=== PATIENT | female | born 1960 | race Caucasian/White ===

== ENCOUNTER 2017-05-26 16:53 | Emergency (ER) | payer BC, OTHER ==
[2017-05-26] MEDS ORDERED: Diphtheria,Pertussis(Acell),Tetanus Vaccine 0.5 ML Syringe IM ONE (17:08)
[2017-05-26] MEDS ORDERED: Diphtheria,Pertussis(Acell),Tetanus Vaccine 0.5 ML Syringe ONE (17:21)
--- NOTE | 2017-05-26 17:41 | EDM.PDOC ---
ED HPI GENERAL MEDICAL PROBLEM - General Chief Complaint: Bite:Animal, Insect Stated Complaint: DOG BITE LT HAND Time Seen by Provider: 05/26/17 17:04 - History of Present Illness INITIAL COMMENTS - FREE TEXT/NARRATIVE: HISTORY AND PHYSICAL: History of present illness: Patient 57-year-old female presents with a concern of dog bite to her left wrist this occurred from a neighbor's dog bit got into an altercation with her dog she sustained a wound to the dorsal aspect of her left wrist she denies up- to-date tetanus the dog is in custody. Review of systems: As per history of present illness and below otherwise all systems reviewed and negative. Past medical history: As per history of present illness and as reviewed below otherwise noncontributory. Surgical history: As per history of present illness and as reviewed below otherwise noncontributory. Social history: No reported history of drug or alcohol abuse. Family history: As per history of present illness and as reviewed below otherwise noncontributory. Physical exam: HEENT: Atraumatic, normocephalic, pupils reactive, negative for conjunctival pallor or scleral icterus, mucous membranes moist, throat clear, neck supple, nontender, trachea midline. Lungs: Clear to auscultation, breath sounds equal bilaterally, chest nontender. Heart: S1S2, regular, negative for clicks, rubs, or JVD. Abdomen: Soft, nondistended, nontender. Negative for masses or hepatosplenomegaly. Negative for costovertebral tenderness. Pelvis: Stable nontender. Genitourinary: Deferred. Rectal: Deferred. Extremities: Patient has approximately a 1 cm immoderate depth laceration over the dorsal aspect of her left wrist is no tendon involvement was good hemostasis EMS neurovascular unremarkable Neuro: Awake, alert, oriented. Cranial nerves II through XII unremarkable. Cerebellum unremarkable. Motor and sensory unremarkable throughout. Exam nonfocal. Diagnostics: None Therapeutics: Patient's left wrist wound was irrigated with copious amounts 0.9 normal saline and closed with Steri-Strips and an occlusive dressing tetanus 0.5 Td was updated Impression: #1 dog bite left wrist Definitive disposition and diagnosis as appropriate pending reevaluation and review of above. left wrist bite Pain Score (Numeric/FACES): 4 - Related Data Allergies Allergy/AdvReac Type Severity Reaction Status Date / Time No Known Allergies Allergy Verified 05/26/17 17:12 Home Meds: Home Meds Escitalopram [Lexapro] PO DAILY 05/26/17 [History] ED ROS GENERAL - Review of Systems Review Of Systems: ROS reveals no pertinent complaints other than HPI. ED EXAM, ANIMAL BITE - Physical Exam Exam: See Below (See dictation) Course - Vital Signs Last Recorded V/S: Last Vital Signs Temp 36.7 C 05/26/17 17:09 Pulse 104 H 05/26/17 17:09 Resp 16 05/26/17 17:09 BP 137/101 H 05/26/17 17:09 Pulse Ox 96 05/26/17 17:09 - Orders/Labs/Meds Orders: Active Orders 24 hr Category Date Time Status Vaccines to be Administered [RC] PER UNIT ROUTINE Care 05/26/17 17:08 Active Diphth,Pertuss(Acell),Tet Vac [Adacel] Med 05/26/17 17:08 Once 0.5 ml IM .ONCE ONE Departure - Departure Time of Disposition: 17:16 Disposition: Home, Self-Care 01 Condition: Good Clinical Impression: Dog bite - Discharge Information Referrals: PCP,None [Primary Care Provider] - Additional Instructions: The following information is given to patients seen in the emergency department who are being discharged to home. This information is to outline your options for follow-up care. We provide all patients seen in our emergency department with a follow-up referral. The need for follow-up, as well as the timing and circumstances, are variable depending upon the specifics of your emergency department visit. If you don't have a primary care physician on staff, we will provide you with a referral. We always advise you to contact your personal physician following an emergency department visit to inform them of the circumstance of the visit and for follow-up with them and/or the need for any referrals to a consulting specialist. The emergency department will also refer you to a specialist when appropriate. This referral assures that you have the opportunity for followup care with a specialist. All of these measure are taken in an effort to provide you with optimal care, which includes your followup. Under all circumstances we always encourage you to contact your private physician who remains a resource for coordinating your care. When calling for followup care, please make the office aware that this follow-up is from your recent emergency room visit. If for any reason you are refused follow-up, please contact the [facility] emergency department at and asked to speak to the emergency department charge nurse. [facility] specialty clinic-Plastics [address] [place] [address] [phone] Follow-up primary medical doctor and/or hand surgery above 1-2 days call to schedule appointment Augmentin as prescribed return as needed as discussed - My Orders Last 24 Hours: My Active Orders 05/26/17 17:08 Vaccines to be Administered [RC] PER UNIT ROUTINE Diphth,Pertuss(Acell),Tet Vac [Adacel] 0.5 ml IM .ONCE ONE - Assessment/Plan Last 24 Hours: My Active Orders 05/26/17 17:08 Vaccines to be Administered [RC] PER UNIT ROUTINE Diphth,Pertuss(Acell),Tet Vac [Adacel] 0.5 ml IM .ONCE ONE
== END 2017-05-26 17:49 | disposition home or self-care (01) ==
LOC: MW.ED 16:53
DX: S61.552A Open bite of left wrist, initial encounter (principal); Z23 Encounter for immunization; Z79.899 Other long term (current) drug therapy; W54.0XXA Bitten by dog, initial encounter
CPT/HCPCS: 90471; 99283; 99283-25

== ENCOUNTER 2019-10-15 13:31 | Emergency (ER) | payer OTHER ==
[2019-10-15] MEDS ORDERED: Sodium Chloride 0.9% 2.5 ML Syringe FLUSH PRN (14:00)
[2019-10-15] MEDS ORDERED: Sodium Chloride 0.9% 10 ML Syringe FLUSH PRN (14:00)
--- NOTE | 2019-10-15 14:05 | EDM.PDOC ---
ED HPI GENERAL MEDICAL PROBLEM - General Chief Complaint: Genitourinary Problem Stated Complaint: UTI Time Seen by Provider: 10/15/19 14:04 Source of Information: Reports: Patient History Limitations: Reports: No Limitations - History of Present Illness INITIAL COMMENTS - FREE TEXT/NARRATIVE: HISTORY AND PHYSICAL: History of present illness: Patient is a 59-year-old female presents to the ED with complaint of UTI and difficulty urinating. Patient states she has been having dysuria x 1 week. She saw [employer] ATTENDANT in clinic 3 days ago and started on macrobid. She states she woke up this morning with more lower abdominal discomfort and has only urinated once this morning. She states she feels like she needs to go and lower abdomen feels full. She denies any fevers, chills, nausea, vomiting, back pain, diarrhea, constipation. Review of systems: As per history of present illness and below otherwise all systems reviewed and negative. Past medical history: As per history of present illness and as reviewed below otherwise noncontributory. Surgical history: As per history of present illness and as reviewed below otherwise noncontributory. Social history: No reported history of drug or alcohol abuse. Family history: As per history of present illness and as reviewed below otherwise noncontributory. Physical exam: General: Patient sitting comfortably in no acute distress and nontoxic appearing HEENT: Atraumatic, normocephalic, pupils reactive, negative for conjunctival pallor or scleral icterus, mucous membranes moist, throat clear, neck supple, nontender, trachea midline. No meningeal signs. Lungs: Clear to auscultation, breath sounds equal bilaterally, chest nontender. Heart: S1S2, regular, negative for clicks, rubs, or overt murmur. Abdomen: Soft, nondistended, suprapubic tenderness to palpation. Negative for masses or hepatosplenomegaly. Negative for costovertebral tenderness. No rigidity, rebound, guarding. Pelvis: Stable nontender. Genitourinary: Deferred. Rectal: Deferred. Extremities: Atraumatic, negative for cords or calf pain. Neurovascular unremarkable. Neuro: Awake, alert, oriented. Cranial nerves II through XII unremarkable. Cerebellum unremarkable. Motor and sensory unremarkable throughout. Exam nonfocal. Notes: Bladder scan shows 950cc. Coles catheter placed. Patient is afebrile and no tachycardia. CT scan shows diverticulitis. Diagnostics: UA, CBC, CMP, bladder scan Therapeutics: Coles catheter 1g Rocephin IV Prescriptions: Cipro Flagyl Impression: Urinary retention, diverticulitis Definitive disposition and diagnosis as appropriate pending reevaluation and review of above. Pelvic Pain Score (Numeric/FACES): 8 - Related Data Allergies Allergy/AdvReac Type Severity Reaction Status Date / Time No Known Allergies Allergy Verified 10/15/19 13:47 Home Meds: Home Meds Aspirin 81 mg PO DAILY 05/26/17 [History] Escitalopram [Lexapro] 20 mg PO DAILY 05/26/17 [History] Calcium Carbonate/Vitamin D3 [Caltrate-600 with Vit D Tab] 1 each PO DAILY 10/14 [History] Ciprofloxacin HCl [Cipro] 500 mg PO BID 10 Days #20 tablet 10/15/19 [Rx] Iron 45 mg PO DAILY 10/15/19 [History] Nitrofurantoin Monohyd/M-Cryst [Macrobid 100 mg Capsule] 1 tab PO BID 10/15/19 [ History] Omeprazole 20 mg PO ONETIME 10/15/19 [History] metroNIDAZOLE [Flagyl] 500 mg PO TID 10 Days #30 tab 10/15/19 [Rx] Past Medical History Psychiatric History: Reports: Anxiety - Infectious Disease History Infectious Disease History: Reports: None - Past Surgical History GI Surgical History: Reports: Appendectomy Female Surgical History: Reports: Hysterectomy Social & Family History - Family History Family Medical History: Unobtainable - Tobacco Use Smoking Status *Q: Never Smoker - Caffeine Use Caffeine Use: Reports: None - Recreational Drug Use Recreational Drug Use: No ED ROS GENERAL - Review of Systems Review Of Systems: Comprehensive ROS is negative, except as noted in HPI. ED EXAM, RENAL/ - Physical Exam Exam: See Below (see dictation) Course - Vital Signs Last Recorded V/S: Last Vital Signs Temp 97.9 F 10/15/19 13:35 Pulse 77 10/15/19 16:00 Resp 18 10/15/19 13:35 BP 144/70 H 10/15/19 16:00 Pulse Ox 97 10/15/19 16:00 - Orders/Labs/Meds Orders: Active Orders 24 hr Category Date Time Status Insert Coles Catheter [Insert Urinary Catheter] [OM.PC] Care 10/15/19 15:00 Ordered Q24H Urinary Catheter Assessment [RC] ASDIRECTED Care 10/15/19 14:56 Active CULTURE URINE [RM] Stat Lab 10/15/19 14:30 Received Sodium Chloride 0.9% [Saline Flush] Med 10/15/19 14:00 Active 10 ml FLUSH ASDIRECTED PRN Sodium Chloride 0.9% [Saline Flush] Med 10/15/19 14:00 Active 2.5 ml FLUSH ASDIRECTED PRN Saline Lock Insert [OM.PC] Stat Oth 10/15/19 14:00 Ordered Medication Orders Sodium Chloride (Saline Flush) 10 ml FLUSH ASDIRECTED PRN PRN Reason: Keep Vein Open Sodium Chloride (Saline Flush) 2.5 ml FLUSH ASDIRECTED PRN PRN Reason: Keep Vein Open Labs: Laboratory Tests 10/15/19 10/15/19 10/15/19 Range/Units 14:15 14:15 14:30 WBC 12.09 H (4.0-11.0) K/uL RBC 4.07 L (4.30-5.90) M/uL Hgb 11.2 L (12.0-16.0) g/dL Hct 34.6 L (36.0-46.0) % MCV 85.0 (80.0-98.0) fL MCH 27.5 (27.0-32.0) pg MCHC 32.4 (31.0-37.0) g/dL RDW Std Deviation 40.6 (28.0-62.0) fl RDW Coeff of Cindy 13 (11.0-15.0) % Plt Count 465 H (150-400) K/uL MPV 8.30 (7.40-12.00) fL Neut % (Auto) 78.8 (48.0-80.0) % Lymph % (Auto) 13.1 L (16.0-40.0) % Zavala % (Auto) 6.5 (0.0-15.0) % Eos % (Auto) 1.2 (0.0-7.0) % Baso % (Auto) 0.4 (0.0-1.5) % Neut # (Auto) 9.5 H (1.4-5.7) K/uL Lymph # (Auto) 1.6 (0.6-2.4) K/uL Zavala # (Auto) 0.8 (0.0-0.8) K/uL Eos # (Auto) 0.1 (0.0-0.7) K/uL Baso # (Auto) 0.1 (0.0-0.1) K/uL Nucleated RBC % 0.0 /100WBC Nucleated RBCs # 0 K/uL Sodium 129 L (136-145) mmol/L Potassium 4.5 (3.5-5.1) mmol/L Chloride 92 L (98-107) mmol/L Carbon Dioxide 25.8 (21.0-32.0) mmol/L BUN 8 (7.0-18.0) mg/dL Creatinine 0.8 (0.6-1.0) mg/dL Est Cr Clr Drug Dosing 68.13 mL/min Estimated GFR (MDRD) > 60.0 ml/min Glucose 120 H (74-106) mg/dL Calcium 9.0 (8.5-10.1) mg/dL Total Bilirubin 0.2 (0.2-1.0) mg/dL AST 28 (15-37) IU/L ALT 24 (14-63) IU/L Alkaline Phosphatase 112 (46-116) U/L Total Protein 7.3 (6.4-8.2) g/dL Albumin 3.6 (3.4-5.0) g/dL Globulin 3.7 (2.6-4.0) g/dL Albumin/Globulin Ratio 1.0 (0.9-1.6) Urine Color YELLOW Urine Appearance CLEAR Urine pH 6.5 (5.0-8.0) Ur Specific Chester 1.010 (1.001-1.035) Urine Protein NEGATIVE (NEGATIVE) mg/dL Urine Glucose (UA) NEGATIVE (NEGATIVE) mg/dL Urine Ketones NEGATIVE (NEGATIVE) mg/dL Urine Occult Blood NEGATIVE (NEGATIVE) Urine Nitrite POSITIVE H (NEGATIVE) Urine Bilirubin NEGATIVE (NEGATIVE) Urine Urobilinogen 2.0 H (<2.0) EU/dL Ur Leukocyte Esterase NEGATIVE (NEGATIVE) Urine RBC 0-3 (0-2/HPF) Urine WBC 0-3 (0-5/HPF) Ur Epithelial Cells RARE (NONE-FEW) Urine Bacteria FEW (NEGATIVE) Urinalysis Comment Meds: Medications Generic Name Dose Route Start Last Admin Trade Name Freq PRN Reason Stop Dose Admin Sodium Chloride 10 ml 10/15/19 14:00 Saline Flush FLUSH ASDIRECTED PRN Keep Vein Open Sodium Chloride 2.5 ml 10/15/19 14:00 Saline Flush FLUSH ASDIRECTED PRN Keep Vein Open Discontinued Medications Generic Name Dose Route Start Last Admin Trade Name Rachel PRN Reason Stop Dose Admin Ceftriaxone Sodium/Dextrose 1 50 mls @ 100 mls/hr 10/15/19 14:51 10/15/19 15: 14 gm/ Premix IV 10/15/19 15:20 100 mls/hr ONETIME ONE Administration Sodium Chloride 1,000 mls @ 999 mls/hr 10/15/19 14:55 10/15/19 15:16 Normal Saline IV 10/15/19 15:55 999 mls/hr STAT ONE Administration Departure - Departure Time of Disposition: 16:16 Disposition: Home, Self-Care 01 Condition: Good Clinical Impression: Diverticulitis, Urinary retention - Discharge Information Prescriptions: Ciprofloxacin HCl [Cipro] 500 mg PO BID 10 Days #20 tablet metroNIDAZOLE [Flagyl] 500 mg PO TID 10 Days #30 tab Referrals: Timmy Meza MD [Primary Care Provider] - Forms: ED Department Discharge Additional Instructions: The following information is given to patients seen in the emergency department who are being discharged to home. This information is to outline your options for follow-up care. We provide all patients seen in our emergency department with a follow-up referral. The need for follow-up, as well as the timing and circumstances, are variable depending upon the specifics of your emergency department visit. If you don't have a primary care physician on staff, we will provide you with a referral. We always advise you to contact your personal physician following an emergency department visit to inform them of the circumstance of the visit and for follow-up with them and/or the need for any referrals to a consulting specialist. The emergency department will also refer you to a specialist when appropriate. This referral assures that you have the opportunity for follow-up care with a specialist. All of these measure are taken in an effort to provide you with optimal care, which includes your follow-up. Under all circumstances we always encourage you to contact your private physician who remains a resource for coordinating your care. When calling for follow-up care, please make the office aware that this follow-up is from your recent emergency room visit. If for any reason you are refused follow-up, please contact the [facility] Emergency Department at and asked to speak to the emergency department charge nurse. [facility] [address] [place] [address] [address] Take antibiotic as instructed Follow up with Dr. Berger to have catheter removed on Thursday at 1pm Return to ED as needed as discussed Sepsis Event Note - Focused Exam Vital Signs: Vital Signs Temp Pulse Resp BP Pulse Ox 10/15/19 16:00 77 144/70 H 97 10/15/19 13:35 97.9 F 88 18 152/93 H 99 Date Exam was Performed: 10/15/19 Time Exam was Performed: 16:23 - My Orders Last 24 Hours: My Active Orders 10/15/19 14:00 Sodium Chloride 0.9% [Saline Flush] 10 ml FLUSH ASDIRECTED PRN Sodium Chloride 0.9% [Saline Flush] 2.5 ml FLUSH ASDIRECTED PRN Saline Lock Insert [OM.PC] Stat 10/15/19 14:30 CULTURE URINE [RM] Stat 10/15/19 14:56 Urinary Catheter Assessment [RC] ASDIRECTED 10/15/19 15:00 Insert Coles Catheter [Insert Urinary Catheter] [OM.PC] Q24H - Assessment/Plan Last 24 Hours: My Active Orders 10/15/19 14:00 Sodium Chloride 0.9% [Saline Flush] 10 ml FLUSH ASDIRECTED PRN Sodium Chloride 0.9% [Saline Flush] 2.5 ml FLUSH ASDIRECTED PRN Saline Lock Insert [OM.PC] Stat 10/15/19 14:30 CULTURE URINE [RM] Stat 10/15/19 14:56 Urinary Catheter Assessment [RC] ASDIRECTED 10/15/19 15:00 Insert Coles Catheter [Insert Urinary Catheter] [OM.PC] Q24H
[2019-10-15 14:44] LABS: BLOOD UREA NITROGEN,BUN 8 mg/dL (7.0-18.0); CARBON DIOXIDE,CO2 25.8 mmol/L (21.0-32.0); CHLORIDE,CL 92 mmol/L (98-107); GLUCOSE RANDOM 120 mg/dL (74-106); POTASSIUM,K 4.5 mmol/L (3.5-5.1); SODIUM,NA 129 mmol/L (136-145)
[2019-10-15] MEDS ORDERED: cefTRIAXone 1 GM in Premix Bag 1 BAG IV ONE (14:51)
[2019-10-15] MEDS ORDERED: Sodium Chloride 0.9% 1,000 ML IV ONE (14:55)
--- NOTE | 2019-10-15 16:06 | CT ---
CT abdomen and pelvis Technique: Multiple axial sections were obtained from above the dome of the diaphragm inferiorly through the pubic symphysis. Intravenous and oral contrast not utilized. Comparison: No prior abdominal imaging is available. Findings: Slight pericardial effusion is noted. Visualized lung bases show nothing acute. Noncontrast appearance of the liver and spleen appears within normal limits. Kidneys show no abnormal calcifications or hydronephrosis. Adrenal glands show no nodule. Pancreas shows no discrete abnormality. Gallbladder contains no calcified gallstones. Aorta shows atherosclerotic calcification without aneurysm. No retroperitoneal adenopathy or mesenteric abnormalities are appreciated. Appendix not visualized with certainty. Mild inflammatory change is noted around a portion of the descending colon an area of diverticuli. Findings are felt compatible with diverticulitis. No additional pelvic abnormality is appreciated. Coles catheter is present within the bladder. Bone window settings were reviewed which show no acute osseous finding. Impression: 1. Inflammatory change around a portion of the sigmoid colon an area of diverticuli compatible with diverticulitis. 2. Small pericardial effusion. 3. No other acute finding is seen. Diagnostic code #3 This report was dictated in MDT
== END 2019-10-15 16:37 | disposition home or self-care (01) ==
LOC: MW.ED 13:31
DX: K57.32 Diverticulitis of large intestine without perforation or abscess without bleeding (principal); R33.9 Retention of urine, unspecified; F41.9 Anxiety disorder, unspecified; Z79.82 Long term (current) use of aspirin; Z79.899 Other long term (current) drug therapy
CPT/HCPCS: 36415; 51702; 51798; 74176; 80053; 81001; 85025; 87086; 96365; 99284; J0696; J7030; 99283

== ENCOUNTER 2019-12-08 12:03 | Day surgery (SDC) | payer OTHER ==
[~2019-12-08 12:03] MED LIST: Lactated Ringers 1,000 ML IV SCH; Midazolam 1 MG/ML 2 ML SDV ONE; Propofol 200 MG/20 ML SDV ONE; Sodium Chloride 0.9% 10 ML SDV IV PRN; Sodium Chloride 0.9% 10 ML Syringe FLUSH PRN; Sodium Chloride 0.9% 2.5 ML Syringe FLUSH PRN; fentaNYL 100 MCG/2 ML SDV ONE
[2019-12-08] MEDS ORDERED: traMADol 50 MG Tab ONE (12:12)
[2019-12-08] MEDS ORDERED: HYDROmorphone 2 MG/ML Syringe ONE (12:14)
--- NOTE | 2019-12-08 13:02 | PCM.PREANE ---
Preanesthetic Assessment - Anesthesia/Transfusion/Family Hx Anesthesia History: Prior Anesthesia Without Reaction Other Type of Anesthesia Reaction Comment: pt adopted, family hx unknown Family History of Anesthesia Reaction: No Transfusion History: No Prior Transfusion(s) - Review of Systems General: No Symptoms Pulmonary: No Symptoms Cardiovascular: No Symptoms Gastrointestinal: No Symptoms Neurological: No Symptoms Other: Reports: None - Physical Assessment NPO Status Date: 12/07/19 Height: 5 ft 5 in Weight: 94.347 kg ASA Class: 2 Mental Status: Alert & Oriented x3 Airway Class: Mallampati = 2 Dentition: Reports: Normal Dentition ROM/Head Extension: Full Lungs: Clear to Auscultation, Normal Respiratory Effort Cardiovascular: Regular Rate, Regular Rhythm - Allergies Allergies/Adverse Reactions: Allergies Allergy/AdvReac Type Severity Reaction Status Date / Time No Known Allergies Allergy Verified 12/02/19 12:14 - Blood Blood Available: No - Anesthesia Plan Pre-Op Medication Ordered: None - Acknowledgements Anesthesia Type Planned: General Anesthesia (tiva) Pt an Appropriate Candidate for the Planned Anesthesia: Yes Alternatives and Risks of Anesthesia Discussed w Pt/Guardian: Yes Pt/Guardian Understands and Agrees with Anesthesia Plan: Yes PreAnesthesia Questionnaire HEENT History: Reports: None Cardiovascular History: Reports: None Respiratory History: Reports: None Gastrointestinal History: Reports: GERD, Other (See Below) Other Gastrointestinal History: diverticulitis Genitourinary History: Reports: None SIDE PANEL HANGER History: Reports: Musculoskeletal History: Reports: None Neurological History: Reports: None Psychiatric History: Reports: Anxiety Endocrine/Metabolic History: Reports: Obesity/BMI 30+ Hematologic History: Reports: None Immunologic History: Reports: None Oncologic (Cancer) History: Reports: None Dermatologic History: Reports: None - Infectious Disease History Infectious Disease History: Reports: None - Past Surgical History Head Surgeries/Procedures: Reports: None HEENT Surgical History: Reports: None Cardiovascular Surgical History: Reports: None Respiratory Surgical History: Reports: None GI Surgical History: Reports: Appendectomy, Colonoscopy Female Surgical History: Reports: Hysterectomy, Other (See Below) Other Female Surgeries/Procedures: hx laparotomy for excision of cyst Endocrine Surgical History: Reports: None Neurological Surgical History: Reports: None Musculoskeletal Surgical History: Reports: None Oncologic Surgical History: Reports: None Dermatological Surgical History: Reports: None - SUBSTANCE USE Smoking Status *Q: Former Smoker Tobacco Use Within Last Twelve Months: No - HOME MEDS Home Medications: Home Meds Aspirin 81 mg PO DAILY 05/26/17 [History] Escitalopram [Lexapro] 20 mg PO DAILY 05/26/17 [History] Calcium Carbonate/Vitamin D3 [Caltrate-600 with Vit D Tab] 2 tab PO DAILY 10/15/19 [History] Iron 2 tab PO DAILY 10/15/19 [History] Omeprazole 20 mg PO ONETIME 10/15/19 [History] Folic Acid 1 mg PO DAILY 12/02/19 [History] - CURRENT (IN HOUSE) MEDS Current Meds: Current Medications Lactated Ringer's (Ringers, Lactated) 1,000 mls @ 125 mls/hr IV ASDIRECTED LUDIN Sodium Chloride (Saline Flush) 10 ml FLUSH ASDIRECTED PRN PRN Reason: Keep Vein Open Sodium Chloride (Saline Flush) 2.5 ml FLUSH ASDIRECTED PRN PRN Reason: Keep Vein Open Sodium Chloride (Saline Flush) 10 ml FLUSH ASDIRECTED PRN PRN Reason: Keep Vein Open Sodium Chloride (Saline Flush) 2.5 ml FLUSH ASDIRECTED PRN PRN Reason: Keep Vein Open Sodium Chloride (Normal Saline) 10 ml IV ASDIRECTED PRN PRN Reason: IV Use Discontinued Medications Fentanyl (Sublimaze) Confirm Administered Dose 100 mcg .ROUTE .STK-MED ONE Stop: 12/08/19 07:35 Hydromorphone HCl (Dilaudid) Confirm Administered Dose 2 mg .ROUTE .STK-MED ONE Stop: 12/08/19 12:15 Midazolam HCl (Versed 1 Mg/Ml) Confirm Administered Dose 2 mg .ROUTE .STK-MED ONE Stop: 12/08/19 07:35 Propofol (Diprivan 20 Ml) Confirm Administered Dose 200 mg .ROUTE .STK-MED ONE Stop: 12/08/19 07:35 Tramadol HCl (Ultram) Confirm Administered Dose 50 mg .ROUTE .STK-MED ONE Stop: 12/08/19 12:13
[2019-12-08] MEDS ORDERED: Propofol 200 MG/20 ML SDV ONE (14:41)
--- NOTE | 2019-12-08 15:13 | PCM.POSTAN ---
POST ANESTHESIA ASSESSMENT - MENTAL STATUS Mental Status: Alert, Oriented - VITAL SIGNS Vital Signs: Last Vital Signs Temp 97.2 F 12/08/19 14:59 Pulse 64 12/08/19 15:10 Resp 13 12/08/19 15:10 BP 128/74 12/08/19 15:10 Pulse Ox 99 12/08/19 15:10 - RESPIRATORY Respiratory Status: Respiratory Rate WNL, Airway Patent, O2 Saturation Stable - CARDIOVASCULAR CV Status: Pulse Rate WNL, Blood Pressure Stable - GASTROINTESTINAL GI Status: No Symptoms - PAIN Pain Score: 0 - POST OP HYDRATION Hydration Status: Adequate & Stable
--- NOTE | 2019-12-08 15:18 | PCM48HPAN ---
Post Anesthesia Note - EVALUATION WITHIN 48HRS OF ANESTHETIC Vital Signs in Normal Range: Yes Patient Participated in Evaluation: Yes Respiratory Function Stable: Yes Airway Patent: Yes Cardiovascular Function Stable: Yes Hydration Status Stable: Yes Pain Control Satisfactory: Yes Nausea and Vomiting Control Satisfactory: Yes Mental Status Recovered: Yes Vital Signs: Last Vital Signs Temp 97.2 F 12/08/19 14:59 Pulse 59 L 12/08/19 15:15 Resp 14 12/08/19 15:15 BP 129/73 12/08/19 15:15 Pulse Ox 100 12/08/19 15:15
--- NOTE | 2019-12-08 15:20 | PCM.OPNOTE ---
- General Post-Op/Procedure Note Date of Surgery/Procedure: 12/08/19 Operative Procedure(s): Diagnostic colonoscopy with polypectomy Findings: sigmoid colon polyp, sigmoid diverticulosis Pre Op Diagnosis: History of diverticulitis Post-Op Diagnosis: Sigmoid colon polyp, diverticulosis Anesthesia Technique: [facility] [place] Primary Surgeon: Anne Garner Condition: Good Free Text/Narrative:: Intake & Output 12/08/19 12/08/19 12/08/19 06:59 14:59 22:59 Intake Total 950 Balance 950
--- NOTE | 2019-12-08 19:16 | OR ---
SURGEON: ANNE GARNER MD DATE OF PROCEDURE: 12/08/2019 PREOPERATIVE DIAGNOSIS: Diverticulosis. POSTOPERATIVE DIAGNOSES: 1. Diverticulosis. 2. Sigmoid colon polyp. PROCEDURE PERFORMED: Diagnostic colonoscopy. PRIMARY SURGEON: Anne Garner MD ANESTHESIA: MAC. INSTRUMENT USED: Olympus colonoscope. EXTENT OF EXAM: To the cecum. PREPARATION: Good. LIMITATIONS: None. INDICATIONS FOR EXAMINATION: The patient is a 59-year-old female who recently had her first bout of diverticulitis. It has now been 2 months, and the patient is due for a diagnostic colonoscopy. I explained the procedure, expected perioperative course, and the risks. She verbalized understanding and wishes to proceed. PROCEDURE IN DETAIL: The patient was brought into the endoscopy suite and placed in the left lateral decubitus position. A time-out was completed verifying the patient's name, age, date of , allergies, and procedure to be performed. Monitored anesthesia care was induced and continuous oxygen was provided via nasal cannula throughout the procedure. After adequate sedation was achieved, a digital rectal exam was performed. This exam was within normal limits. A well-lubricated colonoscope was inserted in the rectum and advanced under direct visualization to the level of the cecum. The patient had a somewhat redundant sigmoid colon, but I was able to pass this safely through. I identified the cecum by visual and anatomic landmarks. A photograph was taken of the cecal cap, but due to looping of the scope more proximally, I was unable to retroflex the scope within the cecum. The scope was fully withdrawn while examining the color, texture, anatomy, and integrity of the mucosa from the cecum to the anal canal. The patient did have a small amount of scattered diverticula within the sigmoid colon. In the distal sigmoid colon, she was found to have a sessile polyp. This was removed in piecemeal fashion using cold biopsy forceps. The scope was then brought into the rectum and retroflexed to allow visualization of the anal canal opening. This appeared normal and a photograph was taken. The scope was then straightened out and fully withdrawn. The cecum to anus time was 10 minutes. The patient tolerated the procedure well and was transferred to the PACU in stable condition. ENDOSCOPIC DIAGNOSES: 1. Diverticulosis. 2. Sigmoid colon polyp. RECOMMENDATIONS: Follow up in clinic in 2 weeks. EMILY BLANCHARD /[id number]
== END 2019-12-08 15:50 | disposition home or self-care (01) ==
LOC: MW.SDS 12:03
PROVIDERS: ATTEND Surgery
DX: K63.5 Polyp of colon (principal); K57.30 Diverticulosis of large intestine without perforation or abscess without bleeding; F41.8 Other specified anxiety disorders; E78.5 Hyperlipidemia, unspecified; E66.9 Obesity, unspecified; K21.9 Gastro-esophageal reflux disease without esophagitis; Z79.82 Long term (current) use of aspirin; Z79.899 Other long term (current) drug therapy; Z87.891 Personal history of nicotine dependence; Z98.890 Other specified postprocedural states; Z68.34 Body mass index [BMI] 34.0-34.9, adult
CPT/HCPCS: 45380; J2250; J2704; J3010; J7120

== ENCOUNTER 2020-03-31 11:07 | Emergency (ER) | payer OTHER ==
[2020-03-31] MEDS ORDERED: Lidocaine 1% with EPINEPHrine 1:100,000 10 ML MDV INJECT ONE (11:39)
[2020-03-31] MEDS ORDERED: Lidocaine 1% with EPINEPHrine 1:100,000 20 ML MDV INJECT ONE (11:47)
[2020-03-31] MEDS ORDERED: Lidocaine 1% with EPINEPHrine 1:100,000 20 ML MDV ONE (11:47)
--- NOTE | 2020-03-31 12:14 | EDM.PDOC ---
ED HPI GENERAL MEDICAL PROBLEM - General Chief Complaint: Skin Complaint Stated Complaint: ABSCESS ON FACE Time Seen by Provider: 03/31/20 11:09 Source of Information: Reports: Patient, Old Records History Limitations: Reports: No Limitations - History of Present Illness INITIAL COMMENTS - FREE TEXT/NARRATIVE: 59-year-old female with no pertinent past medical history presenting with pain and swelling to the left side of her jaw. She states that she had a "zit" that popped up a few days ago. She tried to drain it with a needle at home without much success. She is concerned that she has an ongoing infection. She denies any history of diabetes or immunosuppression. No fever, chills, nausea, vomiting. No self treatment prior to arrival. Past medical history: Reviewed, no additional pertinent history. Surgical history: Reviewed in system, no additional pertinent history. Social history: Reviewed in system, no additional pertinent history. Family history: Reviewed in system, no additional pertinent history. PHYSICAL EXAM Vital signs reviewed. Nursing notes reviewed. Constitutional: Awake, alert, non-distressed. Head: Normocephalic, atraumatic. Eyes: EOMI, conjunctiva normal, no discharge, no scleral icterus. Ears, Nose, Throat: External ears and nose normal, moist oral mucosa. Oropharynx is clear, uvula is midline. No pain with tracheal tug. Normal voice. Neck: Supple, full range of motion. Cardiovascular: 2+ radial pulse, capillary refill less than 2 seconds. Pulmonary: normal work of breathing, no accessory muscle use. Abdomen/GI: Soft, nontender, nondistended, no guarding or rigidity, no masses. Musculoskeletal: No deformities. Integumentary: Appropriate color for ethnicity, warm, dry, no pallor or jaundice, no rash. Small area of redness and fluctuance to the left side of the mandible in the skin, concerning for a small abscess. No significant associated cellulitis. Neurologic: Alert, answering questions appropriately, normal speech, no facial droop, moving all extremities well. Psychiatric: Appropriate mood and affect, normal thought process. - Related Data Allergies Allergy/AdvReac Type Severity Reaction Status Date / Time No Known Allergies Allergy Verified 03/31/20 11:23 Home Meds: Home Meds Aspirin 81 mg PO DAILY 05/26/17 [History] Escitalopram [Lexapro] 20 mg PO DAILY 05/26/17 [History] Calcium Carbonate/Vitamin D3 [Caltrate 600 Plus D3 Tablet] 2 tab PO DAILY 10/15/19 [History] Iron 2 tab PO DAILY 10/15/19 [History] Omeprazole 20 mg PO ONETIME 10/15/19 [History] Folic Acid 1 mg PO DAILY 12/02/19 [History] Doxycycline Hyclate 100 mg PO BID 10 Days #20 tablet. 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: Musculoskeletal History: Reports: None Neurological History: Reports: None Psychiatric History: Reports: Anxiety Endocrine/Metabolic History: Reports: Obesity/BMI 30+ Hematologic History: Reports: None Immunologic History: Reports: None Oncologic (Cancer) History: Reports: None Dermatologic History: Reports: None - Infectious Disease History Infectious Disease History: Reports: Chicken Pox, Mumps - Past Surgical History Head Surgeries/Procedures: Reports: None HEENT Surgical History: Reports: None Cardiovascular Surgical History: Reports: None Respiratory Surgical History: Reports: None GI Surgical History: Reports: Appendectomy, Colonoscopy Female Surgical History: Reports: Hysterectomy, Other (See Below) Other Female Surgeries/Procedures: hx laparotomy for excision of cyst Endocrine Surgical History: Reports: None Neurological Surgical History: Reports: None Musculoskeletal Surgical History: Reports: None Oncologic Surgical History: Reports: None Dermatological Surgical History: Reports: None Social & Family History - Family History Family Medical History: Unobtainable - Caffeine Use Caffeine Use: Reports: None ED ROS GENERAL - Review of Systems Review Of Systems: See Below ED EXAM, SKIN/RASH Exam: See Below Course - Vital Signs Text/Narrative:: [id number] ultrasound shows a small, 0.5 cm abscess on the left side of the mandible. There is no significant surrounding cellulitis. No sign of intraoral involvement or airway compromise. Neck is supple. Patient appears nontoxic. We did discuss the risk of pain and possible scarring with incision and drainage and the patient gave verbal consent to perform I&D here in the ER. Underwent bedside incision and drainage as detailed in the procedure note. This was tolerated well. We did send wound cultures. We will discharge home with a 10-day course of doxycycline and recommend primary care follow-up as needed. Tylenol Motrin as needed for pain. Discussed return precautions, discharged in good condition. Last Recorded V/S: Last Vital Signs Temp 36.5 C 03/31/20 11:19 Pulse 72 03/31/20 11:19 Resp 18 03/31/20 11:19 BP 149/90 H 03/31/20 11:19 Pulse Ox 96 03/31/20 11:19 - Orders/Labs/Meds Orders: Active Orders 24 hr Category Date Time Status NPO Now [Nothing per Oral Now Diet] [DIET] Diet 03/31/20 Dinner Active CULTURE WOUND [RM] Stat Lab 03/31/20 11:39 Ordered Meds: Medications Discontinued Medications Generic Name Dose Route Start Last Admin Trade Name Rachel PRN Reason Stop Dose Admin Lidocaine/Epinephrine 10 ml 03/31/20 11:39 03/31/20 11:58 Xylocaine 1% With Epinephrine 1:100,000 INJECT 03/31/20 11:40 Not Given ONETIME ONE Lidocaine/Epinephrine 20 ml 03/31/20 11:47 03/31/20 11:58 Xylocaine 1% With Epinephrine 1:100,000 INJECT 03/31/20 11:48 20 ml ONETIME ONE Administration Lidocaine/Epinephrine Confirm 03/31/20 11:47 03/31/20 11:58 Xylocaine 1% With Epinephrine 1:100,000 Administered 03/31/20 11:48 Not Given Dose 20 ml .ROUTE .STK-MED ONE Departure - Departure Time of Disposition: 12:12 Disposition: Home, Self-Care 01 Condition: Good Clinical Impression: Facial abscess - Discharge Information *PRESCRIPTION DRUG MONITORING PROGRAM REVIEWED*: Not Applicable *COPY OF PRESCRIPTION DRUG MONITORING REPORT IN PATIENT JANA: Not Applicable Instructions: Skin Abscess Referrals: [facility] [Provider Group] - 1 Week (Follow-up as needed.) Additional Instructions: You were seen in the emergency department for a facial abscess. This was drained in the emergency department. We will prescribe some antibiotics, be sure to take the entire bottle. You can take [id number] Tylenol or Motrin for pain. Follow-up with a primary doctor as needed with any concerns. Warning signs to come back to the ER include worsening pain or swelling, fever of 100.4 higher, chills, or any other new or concerning symptoms. Please return the emergency department immediately if your symptoms worsen or if you feel worse. Thank you for choosing the [facility] emergency department in [place] for your medical needs today. It was a pleasure caring for you. The following information is given to patients seen in the emergency department who are being discharged. This information is to outline your options for follow-up care. We provide all patients seen in our emergency department with a follow-up referral. The need for follow-up, as well as the timing and circumstances, are variable depending upon the specifics of your emergency department visit. If you don't have a primary care physician on staff, we will provide you with a referral. We always advise you to contact your personal physician following an emergency department visit to inform them of the circumstance of the visit and for follow-up with them and/or the need for any referrals to a consulting specialist. The emergency department will also refer you to a specialist when appropriate. This referral assures that you have the opportunity for follow-up care with a specialist. All of these measure are taken in an effort to provide you with optimal care, which includes your follow-up. Under all circumstances we always encourage you to contact your private physician who remains a resource for coordinating your care. When calling for follow-up care, please make the office aware that this follow-up is from your recent emergency room visit. If for any reason you are refused follow-up, please contact the [facility] Emergency Department at and asked to speak to the emergency department charge nurse. If you do not have a primary care physician that is caring for you, you can contact these clinics below to set up an appointment to establish care: Shanae Campuzano [facility] - Primary Care [address] [place] [id number] [facility] [address] [place] [id number] Sepsis Event Note (ED) - Evaluation Sepsis Screening Result: No Definite Risk - Focused Exam Vital Signs: Vital Signs Temp Pulse Resp BP Pulse Ox 03/31/20 11:19 36.5 C 72 18 149/90 H 96 - My Orders Last 24 Hours: My Active Orders 03/31/20 11:39 CULTURE WOUND [RM] Stat 03/31/20 Dinner NPO Now [Nothing per Oral Now Diet] [DIET] - Assessment/Plan Last 24 Hours: My Active Orders 03/31/20 11:39 CULTURE WOUND [RM] Stat 03/31/20 Dinner NPO Now [Nothing per Oral Now Diet] [DIET] ED ULTRASOUND - Evaluation of Abscess Location: Left mandible Abscess Identified: Yes Size of Abscess: 0.5 cm Loculations noted: No US Evaluation of Abscess Text: No evidence of significant surrounding cellulitis ED I&D PROCEDURES - I&D Site: Left-sided mandible Skin prep: Isopropyl Alcohol (Alcohol) Local anesthesia - Lidocaine (Xylocaine): 1% with EPI Local Anesthetic Volume: 2cc Area Incised With: 11 Blade Drainage: Purulent Probed to Break Up Loculations: No Packed With: None Sterile Dressing: Adhesive Dressing Complications: No
== END 2020-03-31 12:26 | disposition home or self-care (01) ==
LOC: MW.ED 11:07
DX: L02.01 Cutaneous abscess of face (principal); E66.9 Obesity, unspecified; K21.9 Gastro-esophageal reflux disease without esophagitis; F41.9 Anxiety disorder, unspecified; Z79.82 Long term (current) use of aspirin; Z79.899 Other long term (current) drug therapy; Z90.49 Acquired absence of other specified parts of digestive tract; Z90.710 Acquired absence of both cervix and uterus
CPT/HCPCS: 10060; 10061; 87070; 99282; 99283-25